=== PATIENT | male | born 1965 | race Caucasian/White ===

== ENCOUNTER 2019-12-09 10:06 | Emergency (ER) | payer BC ==
[~2019-12-09] VITALS: Ht 180.3 cm; Wt 86.4 kg
[2019-12-09 12:07] LABS: BASOPHILS # (AUTO) 0.1 X10'3 (0-0.2); BASOPHILS % (AUTO) 0.8 % (0-1); EOSINOPHILS # (AUTO) 0.2 X10'3 (0-0.9); EOSINOPHILS % (AUTO) 2.1 % (0-6); HEMATOCRIT 36.2 % (42.0-52.0); HEMOGLOBIN 12.4 g/dl (14.0-17.9); LYMPHOCYTES # (AUTO) 2.3 X10'3 (1.1-4.8); LYMPHOCYTES % (AUTO) 23.5 % (21-51); MEAN CORPUSCULAR HEMOGLOBIN 35.6 PG (27.0-31.0); MEAN CORPUSCULAR HGB CONC 34.2 g/dL (33.0-36.5); MEAN CORPUSCULAR VOLUME 104.1 FL (78-98); MEAN PLATELET VOLUME 7.8 FL (7.4-10.4); MONOCYTES # (AUTO) 1.2 X10'3 (0-0.9); NEUTROPHILS # (AUTO) 6.1 X10'3 (1.8-7.7); NEUTROPHILS % (AUTO) 61.6 % (42-75); PLATELET COUNT 452 X10'3 (140-440); RED BLOOD COUNT 3.48 X10'6 (4.70-6.10); RED CELL DISTRIBUTION WIDTH 13.7 % (11.5-14.5); WHITE BLOOD COUNT 9.9 X10'3 (4.5-11.0)
[2019-12-09 12:20] LABS: ALANINE AMINOTRANSFERASE 37 U/L (12-78); ALBUMIN 3.8 G/DL (3.4-5.0); ALBUMIN/GLOBULIN RATIO 1.1 (1.1-1.5); ALKALINE PHOSPHATASE 107 IU/L (46-116); ANION GAP 8 (8-16); ASPARTATE AMINO TRANSFERASE 26 U/L (10-37); BILIRUBIN,TOTAL 2.1 MG/DL (0.1-1.0); BLOOD UREA NITROGEN 8 MG/DL (7-18); BUN/CREATININE RATIO 10.5 (5.4-32.0); CALCIUM 8.9 MG/DL (8.5-10.1); CHLORIDE 106 MMOL/L (99-107); CREATININE 0.76 MG/DL (0.60-1.10); GLUCOSE 97 MG/DL (70-104); LIPASE 97 U/L (73-393); POTASSIUM 3.8 MMOL/L (3.5-5.1); SODIUM 142 MMOL/L (135-145); TOTAL CARBON DIOXIDE 28.3 MMOL/L (24-32); TOTAL PROTEIN 7.4 G/DL (6.4-8.2); eGFR > 90 ML/MIN
[2019-12-09 12:37] LABS: CLARITY,URINE CLEAR (Clear); COLOR,URINE YELLOW (Yellow); GLUCOSE, URINE NEGATIVE (Neg); KETONES,URINE NEGATIVE (Neg); LEUKOCYTE ESTERASE ,URINE NEGATIVE (Neg); NITRITES, URINE NEGATIVE (Neg); OCCULT BLOOD,URINE NEGATIVE (Neg); PROTEIN,URINE NEGATIVE (Neg); UROBILINOGEN,URINE 0.2 E.U/dL (0.2-1.0)
[2019-12-09 12:41] LABS: UA COLLECTION TYPE CLN CATCH MIDSTREAM
[2019-12-09] MEDS ORDERED: ciprofloxacin 250mg tablet PO ONE (12:45)
[2019-12-09] MEDS ORDERED: metroNIDAZOLE 500mg tablet PO ONE (12:45)
[2019-12-09] MEDS ORDERED: METR-159 PO (12:46)
[2019-12-09] MEDS ORDERED: CIPR-230 PO (12:46)
[2019-12-09 13:15] VITALS: BP 132/84
== END 2019-12-09 13:16 | disposition home or self-care (01) ==
LOC: ER 10:07
DX: R10.32 Left lower quadrant pain (principal); R05 Cough; Z98.890 Other specified postprocedural states
CPT/HCPCS: 36415; 74176; 80053; 81003; 83690; 85025; 99284; J3490